=== PATIENT | female | born 1995 | race Caucasian/White ===

== ENCOUNTER 2018-04-28 08:25 | Emergency (ER) | payer OTHER, SELFPAY ==
[2018-04-28] MEDS ORDERED: CETIRIZINE HCL 5 MG TABLET ONE (09:11)
[2018-04-28] MEDS ORDERED: predniSONE 20 MG TAB ONE (09:12)
[2018-04-28] MEDS ORDERED: FAMOTIDINE 20 MG TAB ONE (09:12)
--- NOTE | 2018-04-28 09:12 | ER ---
Nurse's Notes [facility] Name: Sindy Quiles Age: 23 yrs Sex: Female : 1995 Arrival Date: 04/28/2018 Time: : Bed 14 Private MD: Diagnosis: Irritant contact dermatitis Presentation: 04/28 08:49 Presenting complaint: Patient states: "I put a dog runner up 48 hours ago and I am ss highly allergic to poison uma and sumac, and I must have gotten into one of them." Pt c/o itchy rash to torso, face, bilateral upper and lower extremities. Transition of care: patient was not received from another setting of care. Onset of symptoms was April 26, 2018. Risk Assessment: Do you want to hurt yourself or someone else? Patient reports no desire to harm self or others. Initial Sepsis Screen: Does the patient meet any 2 criteria? No. Patient's initial sepsis screen is negative. Does the patient have a suspected source of infection? No. Patient's initial sepsis screen is negative. Care prior to arrival: None. 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 - Social history:: Smoking status: Patient uses tobacco products, smokes one-half pack cigarettes per day. - Ebola Screening: : Patient denies exposure to infectious person Patient denies travel to an Ebola-affected area in the 21 days before illness onset. Screenin:56 Abuse screen: Denies threats or abuse. Denies injuries from another. Nutritional ss screening: No deficits noted. Tuberculosis screening: Never had TB. Fall Risk None identified. Assessment: 08:56 General: Appears in no apparent distress. comfortable, Behavior is calm, cooperative, ss Denies fever, feeling ill, fatigue, chills. Pain: Denies pain. Neuro: Level of Consciousness is awake, alert, obeys commands. Respiratory: Airway is patent Trachea midline Respiratory effort is even, unlabored, Respiratory pattern is regular, symmetrical, Breath sounds are clear bilaterally. Denies cough, shortness of breath labored breathing, pain with respiration, pain with cough, pain with movement. GI: No signs and/or symptoms were reported involving the gastrointestinal system. Derm: Rash noted that is itchy, vesicular, on forehead, left jaw, chest, right arm, left arm, right leg and left leg. 09:27 Reassessment: Patient appears in no apparent distress at this time. Patient and/or em family updated on plan of care and expected duration. Pain level reassessed. Patient is alert, oriented x 3, equal unlabored respirations, skin warm/dry/pink. Vital Signs: 08:50 BP 114 / 84; Pulse 107; Resp 17; Temp 97.0(TE); Pulse Ox 99% on R/A; Weight 70.31 kg; ss Height 5 ft. 5 in. (165.10 cm); Pain 0/10; 09:26 BP 120 / 79; Pulse 81; Resp 16; Pulse Ox 100% on R/A; Pain 0/10; em 08:50 Body Mass Index 25.79 (70.31 kg, 165.10 cm) ED Course: 08:26 Patient arrived in ED. rg4 08:28 Isa Tijerina FNP-C [facility]. snw 08:28 Darell Thao MD is Attending Physician. snw 08:50 Triage completed. ss 08:50 Arm band placed on right wrist. ss 08:56 Daniella Cespedes, KRYSTINA is Primary Nurse. ss 08:56 Patient has correct armband on for positive identification. Bed in low position. Call light in reach. 08:56 Patient maintains SpO2 saturation greater than 95% on room air. ss 09:26 No provider procedures requiring assistance completed. Patient did not have IV access em during this emergency room visit. Administered Medications: 09:10 Drug: predniSONE 60 mg Route: PO; em 09:16 Follow up: Response: No adverse reaction em 09:10 Drug: Pepcid 20 mg Route: PO; em 09:16 Follow up: Response: No adverse reaction em 09:10 Drug: ZyrTEC - Cetirizine 10 mg Route: PO; em 09:16 Follow up: Response: No adverse reaction em Outcome: 09:11 Discharge ordered by . snw 09:26 Discharged to home ambulatory. em 09:26 Condition: good 09:26 Discharge instructions given to patient, Instructed on discharge instructions, follow up and referral plans. medication usage, Demonstrated understanding of instructions, follow-up care, medications, Prescriptions given X 3. 09:28 Patient left the ED. em Signatures: Isa Tijerina, WIRE BOUND BOX MACHINE OPERATOR-C WIRE BOUND BOX MACHINE OPERATOR-Csnw Santiago Hansen, TRANSIT MIXER OPERATOR TRANSIT MIXER OPERATOR em Daniella Cespedes, KRYSTINA RN Shirin Julien rg4
--- NOTE | 2018-04-28 09:12 | EDPHYS ---
Physician Documentation [facility] Name: Sindy Quiles Age: 23 yrs Sex: Female : 1995 Arrival Date: 04/28/2018 Time: 08: Bed 14 Private MD: ED Physician Darell Thao HPI: 04/28 09:24 This 23 yrs old Female presents to ER via Ambulatory with complaints of Rash. snw 09:24 The patient's rash thought to be caused by Dermatitis. The rash is located on the body snw diffusely. The rash can be described as erythematous, papular, patchy. Onset: The symptoms/episode began/occurred suddenly, 1 day(s) ago. Associated signs and symptoms: Pertinent positives: itching. Severity of symptoms: At their worst the symptoms were mild. The patient has experienced similar episodes in the past. The patient has not recently seen a physician. 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 - Social history:: Smoking status: Patient uses tobacco products, smokes one-half pack cigarettes per day. - Ebola Screening: : Patient denies exposure to infectious person Patient denies travel to an Ebola-affected area in the 21 days before illness onset. ROS: 09:17 Constitutional: Negative for fever, chills, and weight loss, Eyes: Negative for injury, snw pain, redness, and discharge, ENT: Negative for injury, pain, and discharge, Neck: Negative for injury, pain, and swelling, Cardiovascular: Negative for chest pain, palpitations, and edema, Respiratory: Negative for shortness of breath, cough, wheezing, and pleuritic chest pain, Abdomen/GI: Negative for abdominal pain, nausea, vomiting, diarrhea, and constipation, Back: Negative for injury and pain, : Negative for injury, bleeding, discharge, and swelling, MS/Extremity: Negative for injury and deformity, Neuro: Negative for headache, weakness, numbness, tingling, and seizure. 09:17 Skin: Positive for rash. Exam: 09:16 Constitutional: This is a well developed, well nourished patient who is awake, alert, snw and in no acute distress. Head/Face: Normocephalic, atraumatic. Eyes: Pupils equal round and reactive to light, extra-ocular motions intact. Lids and lashes normal. Conjunctiva and sclera are non-icteric and not injected. Cornea within normal limits. Periorbital areas with no swelling, redness, or edema. ENT: Nares patent. No nasal discharge, no septal abnormalities noted. Tympanic membranes are normal and external auditory canals are clear. Oropharynx with no redness, swelling, or masses, exudates, or evidence of obstruction, uvula midline. Mucous membranes moist. Neck: Trachea midline, no thyromegaly or masses palpated, and no cervical lymphadenopathy. Supple, full range of motion without nuchal rigidity, or vertebral point tenderness. No Meningismus. Chest/axilla: Normal chest wall appearance and motion. Nontender with no deformity. No lesions are appreciated. Cardiovascular: Regular rate and rhythm with a normal S1 and S2. No gallops, murmurs, or rubs. Normal PMI, no JVD. No pulse deficits. Respiratory: Lungs have equal breath sounds bilaterally, clear to auscultation and percussion. No rales, rhonchi or wheezes noted. No increased work of breathing, no retractions or nasal flaring. Abdomen/GI: Soft, non-tender, with normal bowel sounds. No distension or tympany. No guarding or rebound. No evidence of tenderness throughout. Back: No spinal tenderness. No costovertebral tenderness. Full range of motion. MS/ Extremity: Pulses equal, no cyanosis. Neurovascular intact. Full, normal range of motion. Neuro: Awake and alert, GCS 15, oriented to person, place, time, and situation. Cranial nerves II-XII grossly intact. Motor strength 5/5 in all extremities. Sensory grossly intact. Cerebellar exam normal. Normal gait. Psych: Awake, alert, with orientation to person, place and time. Behavior, mood, and affect are within normal limits. 09:16 Skin: Appearance: normal except for affected area, contact dermatitis. Vital Signs: 08:50 BP 114 / 84; Pulse 107; Resp 17; Temp 97.0(TE); Pulse Ox 99% on R/A; Weight 70.31 kg; ss Height 5 ft. 5 in. (165.10 cm); Pain 0/10; 09:26 BP 120 / 79; Pulse 81; Resp 16; Pulse Ox 100% on R/A; Pain 0/10; em 08:50 Body Mass Index 25.79 (70.31 kg, 165.10 cm) ss MDM: 08:57 Patient medically screened. snw 09:18 Data reviewed: vital signs, nurses notes. Data interpreted: Pulse oximetry: on room air snw is 99 %. Interpretation: normal. Counseling: I had a detailed discussion with the patient and/or guardian regarding: the historical points, exam findings, and any diagnostic results supporting the discharge/admit diagnosis, the presence of at least one elevated blood pressure reading (>120/80) during this emergency department visit, the need for outpatient follow up, to return to the emergency department if symptoms worsen or persist or if there are any questions or concerns that arise at home. Special discussion: Based on the history and exam findings, there is no indication for further emergent testing or inpatient evaluation. I discussed with the patient/guardian the need to see the primary care provider for further evaluation of the symptoms. Administered Medications: 09:10 Drug: predniSONE 60 mg Route: PO; em 09:16 Follow up: Response: No adverse reaction em 09:10 Drug: Pepcid 20 mg Route: PO; em 09:16 Follow up: Response: No adverse reaction em 09:10 Drug: ZyrTEC - Cetirizine 10 mg Route: PO; em 09:16 Follow up: Response: No adverse reaction em Disposition: 09:35 Co-signature as Attending Physician, Darell Thao MD. rn Disposition: 04/28/18 09:11 Discharged to Home. Impression: Irritant contact dermatitis. - Condition is Stable. - Discharge Instructions: Contact Dermatitis, Poison Nancy Dermatitis. - Prescriptions for Zyrtec 10 mg Oral Tablet - take 1 tablet by ORAL route once daily As needed; 20 tablet. Prednisone 20 mg Oral Tablet - take 2 tablet by ORAL route once daily for 5 days; 10 tablet. Pepcid 20 mg Oral Tablet - take 1 tablet by ORAL route once daily; 20 tablet. - Medication Reconciliation Form, Thank You Letter, Antibiotic Education, Prescription Opioid Use form. - Follow up: Private Physician; When: 2 - 3 days; Reason: Recheck today's complaints, Continuance of care, Re-evaluation by your physician. Follow up: Emergency Department; When: As needed; Reason: Worsening of condition. - Notes: Zanfel as directed over the counter may help symptoms Signatures: Isa Tijerina, MARYANA-C REGIONAL GUIDE-Csnw Santiago Hansen, CUSTOM TAILOR APPRENTICE CUSTOM TAILOR APPRENTICE em Darell Thao MD MD rn Daniella Cespedes RN RN ss Corrections: (The following items were deleted from the chart) 09:28 09:11 04/28/2018 09:11 Discharged to Home. Impression: Irritant contact dermatitis. em Condition is Stable. Forms are Medication Reconciliation Form, Thank You Letter, Antibiotic Education, Prescription Opioid Use. Follow up: Private Physician; When: 2 - 3 days; Reason: Recheck today's complaints, Continuance of care, Re-evaluation by your physician. Follow up: Emergency Department; When: As needed; Reason: Worsening of condition. snw
== END 2018-04-28 09:28 | disposition home or self-care (01) ==
LOC: ER 08:25
DX: L24.9 Irritant contact dermatitis, unspecified cause (principal); F17.210 Nicotine dependence, cigarettes, uncomplicated
CPT/HCPCS: 99284; J7512